=== PATIENT | male | born 1940 | race Caucasian/White ===

== ENCOUNTER 2017-01-22 13:59 | Emergency (ER) | payer OTHER ==
[~2017-01-22] VITALS: Ht 165.1 cm; Wt 72.6 kg
--- NOTE | ~2017-01-22 | EKG ---
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
[~2017-01-22 13:59] MED LIST: ASACOL HD800 MG PO; ASPIRIN325 PO; COLACE100 MG PO; DEPAKENE250 MG PO; DEPAKOTE ER500 MG PO; ELIQUIS5 MG PO; FISH OIL 1,001000 M2 PO; FLOMAX0.4 MG PO; HYDROCODON-ACE1 EAC8 PO; KEFLEX250 MG PO; KEPPRA 500 MG500 M1 PO; KEPPRA 500 MG500 MG PO; TOPROL XL25 MG PO; TRAMADOL 50 MG50 MG PO; VIMPAT200 MG PO
[2017-01-22] MEDS ORDERED: CELEXA20 MG PO (14:29)
[2017-01-22 14:30] LABS: HEMATOCRIT 42.4 % (42.0-52.0); MCV 84.9 fL (80.0-100.0); RBC 4.99 mil/uL (4.50-6.00); RDW 17.4 % (10.5-14.5); WBC 5.5 thou/uL (4.0-11.0)
[2017-01-22 14:34] LABS: ANION GAP 8 mmol/L (7-16); BUN 17 mg/dL (7-18); CHLORIDE 104 mmol/L (98-107); CO2 26 mmol/L (21-32); GLUCOSE 110 mg/dL (74-106); POTASSIUM 4.4 mmol/L (3.5-5.1); SODIUM 138 mmol/L (136-145)
[2017-01-22 14:42] LABS: TROPONIN-I < 0.04 ng/mL (<0.04-0.07)
[2017-01-22 14:50] LABS: APTT 27.3 Seconds (24.5-32.8); INR 1.1; PROTIME 11.4 Seconds (9.3-11.4)
== END 2017-01-22 16:15 | disposition home or self-care (01) ==
LOC: ER 13:59
PROVIDERS: Emergency Medicine
DX: S00.81XA Abrasion of other part of head, initial encounter (principal); S00.411A Abrasion of right ear, initial encounter; S30.811A Abrasion of abdominal wall, initial encounter; I48.91 Unspecified atrial fibrillation; G47.30 Sleep apnea, unspecified; Z95.5 Presence of coronary angioplasty implant and graft; Z90.89 Acquired absence of other organs; Z87.891 Personal history of nicotine dependence; X58.XXXA Exposure to other specified factors, initial encounter; Y93.89 Activity, other specified; Y92.89 Other specified places as the place of occurrence of the external cause; Y99.9 Unspecified external cause status

== ENCOUNTER → 2018-01-23 | Outpatient (CLI) | payer OTHER ==
[~2018-01-23] MED LIST changes: +CELEXA20 MG PO; +DELZICOL400 M1 PO
== END ==
LOC: RAD 12:14
DX: R05 Cough (principal); R07.81 Pleurodynia

== ENCOUNTER → 2020-02-03 | Outpatient (CLI) | payer OTHER | LOC: SJCVC 13:48 → SJCVCIMAG 13:48 | DX: R94.31 Abnormal electrocardiogram [ECG] [EKG] (principal); I44.4 Left anterior fascicular block; I45.2 Bifascicular block; I08.3 Combined rheumatic disorders of mitral, aortic and tricuspid valves; I48.91 Unspecified atrial fibrillation; I42.8 Other cardiomyopathies; Z95.0 Presence of cardiac pacemaker; I44.2 Atrioventricular block, complete; Z79.899 Other long term (current) drug therapy; Z87.891 Personal history of nicotine dependence ==

== ENCOUNTER 2020-02-17 06:41 | Outpatient (CLI) | payer OTHER ==
[~2020-02-17] VITALS: Ht 152.4 cm; Wt 79.4 kg
[2020-02-17] VITALS (9 sets, daily range): BP systolic 126–159; BP diastolic 80–98
--- NOTE | ~2020-02-17 | P ---
[facility] [place] [address] PROCEDURE REPORT Name: VIOLETA RUFFIN Room #: DEP JULIANNA Calvo#: [id number] Admission: 02/17/20 Attend Phys: Levy Valadez MD Discharge: 02/18/20 Date of : 36 Report #: [id number] THIS REPORT FOR: cc: Phoenix Nava MD, Rene P. MD Couchonnal, Luis F. MD ~ CC: Levy Nava PROCEDURE: Upgrade to a biventricular pacemaker. PREOPERATIVE DIAGNOSES: 1. Permanent atrial fibrillation. 2. Heart block. 3. Nonischemic cardiomyopathy, likely due to chronic RV pacing. 4. Pacemaker elective replacement indicator. HISTORY: The patient is an 79-year-old male with history of permanent AFib, status post pacemaker implantation for complete heart block whose device is near [facility]. He has recently had an echocardiogram showing his EF is around 35-40% and had a normal nuclear stress test. 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 He is here for pacemaker generator exchange and an upgrade to a biventricular pacemaker. ANESTHESIA: The patient underwent anesthesia with no anesthesia related complications. DESCRIPTION OF PROCEDURE: The patient underwent informed consent. We discussed the details of the procedure including the risks, which include but not limited to bleeding, infection, vascular damage, cardiac perforation and pneumothorax. He and his family including his daughter, who is a physician understood these risks and are willing to proceed. The patient was brought to the EP laboratory in a fasting and sedated state. The patient was prepped and draped in a standard fashion. The patient received IV antibiotics and underwent a venogram showing patency of left axillary vein. Next, I injected lidocaine at the prior incision site. The incision was made, the chronic pocket was entered and then I obtained access to the left axillary vein x 1 with a short sheath placed using the modified Seldinger technique. Next, a coronary sinus guide sheath was placed into the right atrium and the guidewire actually went directly into the coronary sinus. We were quickly into the coronary sinus and the patient had a middle cardiac vein, a small posterior lateral branch with a slight aranda's hook and had a large anterolateral branch. I therefore placed a quadripolar lead into this anterolateral branch quite quickly, but unfortunately despite multiple pacing configurations there were either poor thresholds or significant diaphragmatic stimulation that was close to the threshold. Therefore, I attempted to go for this posterior lateral [facility] [address] [place] [address] PROCEDURE REPORT Name: VIOLETA RUFFIN Room #: DEP [facility] Lubna#: [id number] Admission: 02/17/20 Attend Phys: Levy Valadez MD Discharge: 02/18/20 Date of : 36 Report #: [id number] branch. I then initially used a [place] Ricky guide sheath, but had difficulty engaging this branch. Of note, it appeared the patient likely had a valve within the coronary sinus as I was limited in being able to advance my wire or leads within the distal segment of the coronary sinus. Therefore, this took a lot of time just to get into the right position to find this posterior lateral branch. Finally, I got a wire down in here and tried advancing the quadripolar lead into this vessel and it would not advance at all. Therefore, I tried hunting for a middle cardiac vein and I could not enter this either. I then tried a Medtronic inner sheath and I did not have much luck with this and therefore, I switched to another St. Ricky 120 degree sheath. With this sheath, I was finally able to enter this posterior lateral branch and again I could not advance the quadripolar lead and therefore, I tried a bipolar lead into this vessel as well. Despite my best efforts, this lead would also not advance. Therefore, as last ditch effort, I placed the lead back into the anterolateral branch and I was actually able to get a decent threshold from the most proximal pole pacing to the can and there was some mild diaphragmatic stim but there was a good separation between the pacing threshold in the diaphragmatic threshold. Therefore, the lead was left in this position. The sheath was split and the lead was sutured to the prepectoral fascia. The patient did have significant bleeding from the venous puncture site and therefore, I did perform a [id number]-bt-ossbc suture around the lead insertion site to obtain hemostasis as I had held pressure for 10 minutes and it kept back bleeding pretty robustly. I therefore switched leads over to the new can. The device was tested and found to be functioning normally. The device was placed in the pocket and the pocket was closed in 2 layers using 2-0 for the deep layer, 3-0 for the middle layer and surgical glue was placed to the outer skin layer. The patient awoke neurologically and hemodynamically intact. This was a prolonged case that was slightly over 3 hours in duration due to the challenging anatomy. The removed device was a [employer] model #K603, model #509331 implanted back in 08/2013. The newly implanted device was a [employer] Solara model #W1TR03, serial #[id number]. The atrial lead was a [employer] model #4135, serial #[id number], implanted in 08/2013. The RV lead was a [employer] model #4136, serial #[id number], implanted in 08/2013. The newly implanted LV lead was a Medtronic model #508032, serial #[id number]. The new LV lead P-wave was 5 millivolts, pacing impedance 532 ohms and the pacing threshold was 1.4 volts at 1 millisecond which is the pacing from the proximal pole to the can. The atrial and right ventricular pacing and sensing thresholds were within normal limits. The device was programmed to the VVIR 60-130 mode with the LV lead pacing 30 milliseconds prior to the RV lead, which resulted in the best QRS duration of around 90 milliseconds. Of note, there was another Medtronic lead that was initially utilized, but was not implanted due to the complex anatomy. CONCLUSIONS: 1. Successful upgrade to a biventricular pacemaker. [facility] [address] [place] [address] PROCEDURE REPORT Name: VIOLETA RUFFIN Room #: DEP [facility] Calvo#: [id number] Admission: 02/17/20 Attend Phys: Levy Valadez MD Discharge: 02/18/20 Date of : 36 Report #: [id number] 2. Satisfactory atrial, right ventricular and left ventricular pacing and sensing thresholds. By: 0940 1015 Levy Valadez MD /nt
[2020-02-17 07:28] LABS: HEMATOCRIT 46.8 % (42.0-52.0); HEMOGLOBIN 15.6 gm/dL (14.0-18.0); MCH 29.5 pg (26.0-34.0); MCHC 33.3 g/dL (28.0-37.0); MCV 88.7 fL (80.0-100.0); PLATELET COUNT 183 thou/uL (150-400); RBC 5.27 mil/uL (4.50-6.00); RDW 17.3 % (10.5-14.5); WBC 5.6 thou/uL (4.0-11.0)
[2020-02-17 07:36] LABS: CREATININE 1.1 mg/dL (0.7-1.3); POTASSIUM 4.4 mmol/L (3.5-5.1)
[2020-02-17 07:43] LABS: ALBUMIN 4.2 g/dL (3.4-5.0); TOTAL BILIRUBIN 0.9 mg/dL (0.2-1.0); TOTAL PROTEIN 7.3 g/dL (6.4-8.2)
[2020-02-17] MEDS ORDERED: APRISO0.375 GM PO (07:52)
[2020-02-17] MEDS ORDERED: TOPROL XL50 MG PO (07:54)
[2020-02-17 08:14] LABS: PROTIME 10.7 Seconds (9.3-11.4)
[2020-02-17 13:08] LABS: ABSOLUTE NEUTROPHILS 2.9 thou/uL (1.4-8.2); ANISOCYTOSIS 1+
--- NOTE | 2020-02-17 15:28 | NUR ---
[age]AR OLD MALE ADMITTED TO CCU ROOM 201. PT WAS ADMITTED TO THE HOSPITAL AFTER HAVING A PACEMAKER PLACED. PT IS ALERT AND ORIENTED TIMES FOUR. VSS, PT DENIES PAIN/SOA DURING ADMISSION ASSESSMENT. WOUND LEFT UPPER CHEST INTACT. LEFT IMMOBILIZER IN PLACE. PT VOIDS PER URINAL. PT AND DAUGHTER BOTH UPDATED ON CARE. WILL CONTINUE TO MONITOR.
[2020-02-18 00:18] VITALS: BP 144/81
--- NOTE | 2020-02-18 04:38 | NUR ---
ASSUMED PT CARE AT 1900. PT IS ALERT AND ORIENTED. NO SIGN OF DISTRESS NOTED IN PT. LEFT ARM IMMOBILIZER IN PLACE AT PACEMAKER SITE. PT IS STABLE. FALL PRECAUTION IN PLACE. CALL LIGHT WITHIN REACH. ASSESSMENT COMPLETED AND DOCUMENTED. DENIES ANY PAIN. SCHEDULED MEDS ADMINISTERED TO PT. TOLERATED PO INTAKE. CONTINUE TO MONITOR PT. NO FURTHER NEEDS REQUESTED AT THIS TIME.
[2020-02-18 04:54] VITALS: BP 134/81
[2020-02-18 07:45] VITALS: BP 139/81
[2020-02-18 10:41] VITALS: BP 139/81
== END 2020-02-18 12:28 | disposition home or self-care (01) ==
LOC: CATH 06:41 → 2N 15:59 → CATH 20:48
PROVIDERS: Internal Medicine Cardiovascular Disease
DX: Z45.010 Encounter for checking and testing of cardiac pacemaker pulse generator [battery] (principal); I42.9 Cardiomyopathy, unspecified; I48.21 Permanent atrial fibrillation; I44.2 Atrioventricular block, complete; I25.10 Atherosclerotic heart disease of native coronary artery without angina pectoris; Z79.01 Long term (current) use of anticoagulants; Z98.890 Other specified postprocedural states; Z96.653 Presence of artificial knee joint, bilateral; Z11.59 Encounter for screening for other viral diseases; Z87.891 Personal history of nicotine dependence; Z79.899 Other long term (current) drug therapy
CPT/HCPCS: 10081; 62110; 62900; 70005

== ENCOUNTER → 2020-02-24 | Outpatient (CLI) | payer OTHER ==
[~2020-02-24] MED LIST changes: +APRISO0.375 GM PO; +TOPROL XL50 MG PO
== END ==
LOC: SJCVC 14:42
PROVIDERS: ATTEND Internal Medicine Cardiovascular Disease
DX: Z45.018 Encounter for adjustment and management of other part of cardiac pacemaker (principal); I44.30 Unspecified atrioventricular block; I42.8 Other cardiomyopathies; I48.21 Permanent atrial fibrillation; I10 Essential (primary) hypertension; Z79.899 Other long term (current) drug therapy; Z87.891 Personal history of nicotine dependence

== ENCOUNTER → 2020-06-07 | Outpatient (CLI) | payer OTHER | LOC: SJCVCIMAG 09:55 | PROVIDERS: ATTEND Internal Medicine Cardiovascular Disease | DX: Z45.018 Encounter for adjustment and management of other part of cardiac pacemaker (principal); I08.8 Other rheumatic multiple valve diseases; I27.20 Pulmonary hypertension, unspecified; R94.31 Abnormal electrocardiogram [ECG] [EKG]; I48.21 Permanent atrial fibrillation; I42.9 Cardiomyopathy, unspecified; I49.5 Sick sinus syndrome; I44.2 Atrioventricular block, complete; I10 Essential (primary) hypertension; D68.59 Other primary thrombophilia; Z79.899 Other long term (current) drug therapy; Z87.891 Personal history of nicotine dependence ==

== ENCOUNTER → 2021-04-24 | Outpatient (CLI) | payer OTHER ==
[~2021-04-24] MED LIST changes: +KEPPRA XR500 MG PO; +KEPPRA750 MG PO; +ZYRTEC10 M5 PO
== END ==
LOC: PAC 13:51
PROVIDERS: ATTEND Specialist
DX: Z01.812 Encounter for preprocedural laboratory examination (principal); Z20.822 Contact with and (suspected) exposure to COVID-19

== ENCOUNTER → 2021-04-26 | Outpatient (CLI) | payer OTHER ==
[~2021-04-26] VITALS: Ht 172.7 cm; Wt 81.6 kg
--- NOTE | 2021-04-26 15:02 | P ---
[facility] [place] [address] PROCEDURE REPORT Name: VIOLETA RUFFIN Room #: REG [facility] Lubna#: [id number] Admission: 04/26/21 Attend Phys: Bunny Elizabeth Discharge: Date of : 36 Report #: [id number] THIS REPORT FOR: cc: Phoenix Nava MD, Rene P. MD McElhinney, Christian C. MD ~ cc: Phoenix Nava MD DATE OF SERVICE: 04/26/2021 PROCEDURE PERFORMED: Colonoscopy with biopsies. HISTORY OF PRESENT ILLNESS: The patient is an 80-year-old male with a history of ulcerative colitis, currently taking Apriso 3 per day. Denies any blood in his stools or diarrhea. Last colonoscopy 3 years ago. Positive family history of colon cancer in his sister. DESCRIPTION OF PROCEDURE: The risks and benefits of the procedure were explained to the patient, those risks including but not limited to bleeding, perforation and the risk of sedation. He understood these risks and gave informed consent. Sedation was given using propofol per Anesthesia. Next, a digital rectal exam was initially performed, which was normal. Next, using a standard Olympus colonoscope, the scope was placed in the patient's anus and advanced under direct vision to the cecum. The overall prep was good. The cecum and ileocecal valve were normal in appearance. In the ascending colon, a 4 mm sessile polyp was noted. This was removed with cold forceps, otherwise normal. Random biopsies were obtained today throughout each segment. There was no evidence of colitis in the ascending, transverse, descending colon. Multiple diverticula were noted in the sigmoid colon, no evidence of inflammation or colitis. Rectal mucosa was normal. On retroflexion, small nonbleeding internal hemorrhoids were noted. Scope was then withdrawn and the procedure terminated. The patient tolerated the procedure well. IMPRESSION: 1. Small colonic polyp. 2. Sigmoid diverticulosis. 3. Internal hemorrhoids. 4. No evidence of active ulcerative colitis on exam today. RECOMMENDATIONS: 1. Await biopsy results. 2. Continue Apriso at current dose. [facility] [address] [place] [address] PROCEDURE REPORT Name: VIOLETA RUFFIN [id number] Admission: 04/26/21 Attend Phys: Bunny Elizabeth Discharge: Date of : 36 Report #: [id number] Thank you for allowing me to participate in his care. <ELECTRONICALLY SIGNED> By: Bunny Casey MD 04/26/21 1502 0804 0819 Bunny Casey MD /nt
--- NOTE | 2021-04-27 17:07 | PATH ---
[facility] [place] [address] PATHOLOGY RPT PROCEDURE Name: EVGENY RUFFIN Room #: [facility].#: [id number] Admission: 04/26/21 Date of : 36 Discharge: Report #: [id number] Path Case #: [id number] [facility] Accession Number: [id number] . 01 Material submitted: . PART A: colon - ASCENDING COLON POLYP BIOPSY. Modifiers: ascending PART B: colon - ASCENDING COLON RANDOM BIOPSY HX OF ULCERATIVE COLITIS. Modifiers: ascending PART C: colon - DESCENDING COLON RANDOM BIOPSY HX OF ULCERATIVE COLITIS. Modifiers: descending PART D: sigmoid colon - SIGMOID COLON BIOPSY PART E: rectum - RECTAL BIOPSY . 01 Clinical history: . COLONOSCOPY HX OF POLYPS . 02 Diagnosis: A. Polyp, ascending colon polyp, endoscopic biopsy: - Tubular adenoma. - Negative for high-grade dysplasia. . B. Large intestine, random ascending colon, history of ulcerative colitis, endoscopic biopsy: - Mild chronic active colitis, history of ulcerative colitis. - Negative for dysplasia or malignancy. . C. Large intestine mucosa, random descending colon, endoscopic biopsy: - Mild chronic active colitis, history of ulcerative colitis. - Negative for dysplasia or malignancy. . D. Large intestine, sigmoid colon, endoscopic biopsy: - Mild chronic active colitis, history of ulcerative colitis. - Negative for dysplasia or malignancy. . E. Large intestine mucosa, rectal, endoscopic biopsy: - Mild chronic active colitis, history of ulcerative colitis. - Negative for dysplasia or malignancy. . (IUV:broadcast traffic coordinator; 04/27/2021) [facility] 04/27/2021 1313 Local . 02 Comment: B, C, D and E. Examination shows scattered rare architectural abnormalities in a mild fibrotic lamina propria. Occasional to rare active cryptitis is identified. Crypt abscess formation, granulomata, or additional features of marked active cryptitis are not identified. [address] [address] PATHOLOGY RPT PROCEDURE Name: EVGENY RUFFIN [facility] [id number] Admission: 04/26/21 Date of : 38 Discharge: Report #: [id number] Path Case #: [id number] plasmacytosis is not identified as well. The provided history of ulcerative colitis is noted. Features are suggestive of mild chronic active colitis with an occasional architecturally abnormal crypt. There is no dysplasia or malignancy present. (IUV:broadcast traffic coordinator; 04/27/2021) . 02 Electronically signed: . Anabel Mast MD, Pathologist NPI- [id number] . 01 Gross description: . A. The specimen is submitted in formalin, labeled "Ruffin, Evgeny, ascending colon polyp biopsy". Received are 3 segments of pale longo tissue ranging in size from 0.3 to 0.4 cm in maximum dimensions. The specimen is submitted in cassette A1. . B. The specimen is submitted in formalin, labeled "Ruffin, Evgeny, ascending colon random biopsy". Received are 4 segments of pale longo tissue ranging in size from 0.3 to 0.5 cm in maximum dimensions. The specimen is submitted in cassette B1. . C. The specimen is submitted in formalin, labeled "Ruffin, Evgeny, descending colon random biopsy". Received are multiple segments of pale longo tissue ranging in size from 0.2 to 0.5 cm in maximum dimensions. The specimen is submitted in cassette C1. . D. The specimen is submitted in formalin, labeled "Ruffin, Evgeny, sigmoid colon biopsy". Received are 4 segments of pale longo tissue ranging in size from 0.3 to 0.5 cm in maximum dimensions. The specimen is submitted in cassette D1. . E. The specimen is submitted in formalin, labeled "Ruffin, Evgeny, rectal biopsy". Received are 3 segments of pale longo tissue ranging in size from 0.4 to 0.5 cm in maximum dimensions. The specimen is submitted in cassette E1. ([facility]; 04/26/2021) NRI/NRI 04/26/2021 164 Local . 02 Pathologist provided ICD-10: D12.2, K52.9, Z86.010 . 02 CPT . 170494, 279976, 506156, 373960, 447556 Specimen Comment: A courtesy copy of this report has been sent to [phone], [phone] Specimen Comment: [phone] Specimen Comment: Report sent to / DR VINES Performed at: [address] [address] PATHOLOGY RPT PROCEDURE Name: RUFFINEVGENY ANGELLA Room #: REG JULIANNA Lin.#: [id number] Admission: 04/26/21 Date of : 36 Discharge: Report #: [id number] Path Case #: [id number] [facility] [address], [place], [place] [id number] MD Miguel A Armstrong MD Phone: [phone] Performed at: [address] [id number] MD Anabel Mast MD Phone: [phone]
== END | disposition home or self-care (01) ==
LOC: GI 07:08
PROVIDERS: ATTEND Specialist
DX: K51.90 Ulcerative colitis, unspecified, without complications (principal); D12.2 Benign neoplasm of ascending colon; K52.9 Noninfective gastroenteritis and colitis, unspecified; K57.30 Diverticulosis of large intestine without perforation or abscess without bleeding; K64.8 Other hemorrhoids; K21.9 Gastro-esophageal reflux disease without esophagitis; I48.91 Unspecified atrial fibrillation; G47.30 Sleep apnea, unspecified; Z86.010 Personal history of colon polyps; Z98.890 Other specified postprocedural states; Z79.899 Other long term (current) drug therapy; Z87.891 Personal history of nicotine dependence; Z95.0 Presence of cardiac pacemaker; Z85.828 Personal history of other malignant neoplasm of skin; Z96.653 Presence of artificial knee joint, bilateral; Z79.01 Long term (current) use of anticoagulants; Z80.0 Family history of malignant neoplasm of digestive organs
CPT/HCPCS: 62110; 62900

== ENCOUNTER → 2021-06-06 | Outpatient (CLI) | payer OTHER | LOC: SJCVC 10:37 | PROVIDERS: ATTEND Internal Medicine Cardiovascular Disease | DX: I42.9 Cardiomyopathy, unspecified (principal); I48.21 Permanent atrial fibrillation; Z95.0 Presence of cardiac pacemaker; Z79.899 Other long term (current) drug therapy; Z87.891 Personal history of nicotine dependence ==